=== PATIENT | male | born 1980 | race African-American/Black ===

== ENCOUNTER 2020-06-10 05:34 | Emergency (ER) | payer MEDICAID, OTHER ==
[~2020-06-10] VITALS: Ht 195.6 cm; Wt 96.0 kg
[2020-06-10] MEDS ORDERED: CEFTRIAXONE SODIUM 1 G/VIAL IM ONE (06:15)
[2020-06-10] MEDS ORDERED: PENICILLIN G BENZATHINE 2,400,000 UNITS/4ML SYR IM ONE (06:30)
[2020-06-10] MEDS ORDERED: LIDOCAINE HCL 1% 20ML VIAL (Pyxis) INJ INFIL ONE (06:30)
[2020-06-10 06:32] LABS: *COCAINE SCREEN URINE NEGATIVE (NEGATIVE); CANNABINOID URINE SCREEN PRESUMTIVE POSITIVE (NEGATIVE)
[2020-06-10 06:33] LABS: *AMPHETAMINES SCREEN URINE PRESUMTIVE POSITIVE (NEGATIVE); *BARBITURATES SCREEN URINE NEGATIVE (NEGATIVE); *BENZODIAZEPINES SCREEN URINE NEGATIVE (NEGATIVE); METHADONE URINE SCREEN NEGATIVE (NEGATIVE); OPIATES URINE SCREEN NEGATIVE (NEGATIVE); PHENCYCLIDINE URINE SCREEN PRESUMTIVE POSITIVE (NEGATIVE)
[2020-06-10 06:35] VITALS: BP 121/69
[2020-06-10] MEDS ORDERED: DOXY100T2 MT (06:42)
[2020-06-13 06:11] LABS: NEISSERIA GONORRHOEAE NAA Positive (Negative)
== END 2020-06-10 06:55 | disposition home or self-care (01) ==
LOC: ER 05:34
DX: A54.01 Gonococcal cystitis and urethritis, unspecified (principal); A63.8 Other specified predominantly sexually transmitted diseases; F16.129 Hallucinogen abuse with intoxication, unspecified; F15.129 Other stimulant abuse with intoxication, unspecified
CPT/HCPCS: 80305; 86592; 86593; 86780; 87491; 87591; 96372; 99284; J0561; J0696; J3490; Z7610

== ENCOUNTER 2020-08-12 05:22 | Emergency (ER) | payer MEDICAID, OTHER ==
[~2020-08-12] VITALS: Ht 198.1 cm; Wt 96.0 kg
[~2020-08-12 05:22] MED LIST: DOXY100T2 MT
[2020-08-12] MEDS ORDERED: TETANUS, DIPHTHERIA, PERTUSSIS VAC/PF 0.5ML (>7YR OLD) IM ONE (06:15)
[2020-08-12] MEDS ORDERED: LIDOCAINE HCL 1% 20ML VIAL (Pyxis) INJ INFIL ONE (06:15)
[2020-08-12] MEDS ORDERED: KETOROLAC 60MG/2ML VIAL IM ONE (06:45)
[2020-08-12] MEDS ORDERED: IBUP-2029 MT (06:51)
[2020-08-12 07:09] VITALS: BP 135/87
== END 2020-08-12 07:04 | disposition home or self-care (01) ==
LOC: ER 05:22
DX: S41.012A Laceration without foreign body of left shoulder, initial encounter (principal); R03.0 Elevated blood-pressure reading, without diagnosis of hypertension; V18.4XXA Pedal cycle driver injured in noncollision transport accident in traffic accident, initial encounter; Y93.55 Activity, bike riding; Y92.488 Other paved roadways as the place of occurrence of the external cause; Z23 Encounter for immunization
CPT/HCPCS: 12001; 73030; 90471; 90715; 96372; 99284; J1885; J3490